=== PATIENT | female | born 1970 | race Caucasian/White ===

== ENCOUNTER 2018-08-30 07:39 | Day surgery (SDC) | END 2018-08-30 13:25 | disposition home or self-care (01) ==

== ENCOUNTER 2018-09-03 20:42 | Emergency (ER) | END 2018-09-04 01:46 | disposition home or self-care (01) ==

== ENCOUNTER 2018-09-26 17:47 | Emergency (ER) | END 2018-09-27 00:55 | disposition home or self-care (01) ==